=== PATIENT | male | born 1940 | race Caucasian/White ===

== ENCOUNTER 2016-11-07 10:19 | Emergency (ER) | payer MEDICARE, BC ==
--- NOTE | 2016-11-07 11:02 | EDM.PDOC ---
[id number]: CHEST PAIN WHEN ACTIVE Time Seen by Provider: 11/07/16 10:45 Source: Reports: Patient, Family History Limitations: Reports: No limitations - History of Present Illness INITIAL COMMENTS - FREE TEXT/NARRATIVE: 75-year-old male who presents to the emergency department with slowly but progressively worsening chest pain with activity over the past 3-4 weeks. After ambulating for over 5-6 minutes he starts getting chest pressure and pain which takes a few minutes to resolve with rest. It is not related to position, eating, is not associated with shortness of breath or diaphoresis. He recently had an increase in his lisinopril from 10-20 mg daily because of persistent hypertension. He is being treated with chemotherapy for liver cancer, continues to take an aspirin daily. Severity: mild Location, General: Reports: chest Quality: Reports: Ache, Pressure Associated Symptoms: Reports: denies other symptoms - Related Data Allergies/ADRs: Allergies Allergy/AdvReac Type Severity Reaction Status Date / Time atorvastatin Allergy Cannot Verified 11/09/15 21:58 Remember atorvastatin calcium Allergy Cannot Verified 11/09/15 21:58 [From Lipitor] Remember Penicillins Allergy Rash Verified 11/09/15 21:58 pravastatin Allergy Cannot Verified 11/09/15 21:58 Remember Home Meds: Home Meds Aspirin [Halfprin] 81 mg PO QAM 09/30/14 [History] Nitroglycerin 0.4 mg SL ASDIRECTED PRN 09/30/14 [History] Simvastatin [Zocor] 40 mg PO BEDTIME 09/30/14 [History] Ibuprofen 200 mg PO Q6H PRN 09/08/15 [History] Docusate Sodium [Colace] 200 mg PO BID 11/09/15 [History] Polyethylene Glycol 3350 [MiraLAX] 1 pkt PO QAM 11/09/15 [History] oxyCODONE 1 - 2 tab PO Q4H PRN 11/09/15 [History] Lisinopril [Lisinopril] 20 mg PO DAILY 11/07/16 [History] Past Medical History HEENT History: Reports: Impaired vision Cardiovascular History: Reports: CAD, High cholesterol, Hypertension Genitourinary History: Reports: Prostate disorder Oncologic (Cancer) History: Reports: Liver, Prostate - Past Surgical History Cardiovascular Surgical History: Reports: Carotid stents GI Surgical History: Reports: Cholecystectomy, Colonoscopy, Other (see below) Other GI Surgeries/Procedures: liver resection Male Surgical History: Reports: Prostatectomy Musculoskeletal Surgical History: Reports: Hip replacement Oncologic Surgical History: Reports: Other (see below) Other Oncologic Surgeries/Procedures: prostate rmoved, liver resection Social & Family History - Tobacco Use Smoking Status *Q: Former Smoker Years of Tobacco use: 10 Used Tobacco, but Quit: Yes Month Tobacco Last Used: 576 Second Hand Smoke Exposure: No - Caffeine Use Caffeine Use: Reports: Coffee - Alcohol Use Days Per Week of Alcohol Use: 0 - Recreational Drug Use Recreational Drug Use: No ED ROS GENERAL - Review of Systems Review Of Systems: See Below Constitutional: Denies: fever, chills, malaise Respiratory: Denies: Shortness of Breath Cardiovascular: Reports: Chest pain. Denies: Dyspnea on exertion, Palpitations , Syncope GI/Abdominal: Denies: Abdominal pain Skin: Reports: no symptoms Neurological: Reports: No Symptoms Psychiatric: Reports: No symptoms ED EXAM, GENERAL - Physical Exam Exam: See Below Exam Limited By: No limitations General Appearance: alert, no apparent distress Eye Exam: bilateral eye: EOMI Respiratory/Chest: no respiratory distress, lungs clear Cardiovascular: regular rate, rhythm. No: tachycardia, extra beats Extremities: normal inspection. No: pedal edema Neurological: alert, oriented, no motor/sensory deficits Psychiatric: normal affect, normal mood Skin Exam: Warm, Dry EKG INTERPRETATION Rhythm: NSR Course - Vital Signs Last Recorded V/S: Last Vital Signs Temp 97.5 F 11/07/16 10:36 Pulse 73 11/07/16 11:51 Resp 16 11/07/16 11:51 BP 183/97 H 11/07/16 11:51 Pulse Ox 99 11/07/16 11:51 - Orders/Labs/Meds Orders: Active Orders 24 hr Category Date Time Status EKG Documentation Completion [RC] ASDIRECTED Care 11/07/16 10:56 Active EKG 12 Lead [EK] Routine Ther 11/07/16 10:56 Ordered Labs: Laboratory Tests 11/07/16 11/07/16 Range/Units 11:05 11:05 WBC 5.0 (4.5-11.0) K/uL RBC 3.54 L (4.30-5.90) M/uL Hgb 10.1 L D (12.0-15.0) g/dL Hct 32.3 L (40.0-54.0) % MCV 91 (80-98) fL MCH 29 (27-31) pg MCHC 31 L (32-36) % Plt Count 95 L (150-400) K/uL Add Manual Diff Yes Neutrophils % (Manual) 48 (36-66) % Band Neutrophils % 2 L (5-11) % Lymphocytes % (Manual) 38 (24-44) % Monocytes % (Manual) 11 H (2-6) % Eosinophils % (Manual) 1 L (2-4) % Sodium 142 (140-148) mmol/L Potassium 4.2 (3.6-5.2) mmol/L Chloride 109 H (100-108) mmol/L Carbon Dioxide 27 (21-32) mmol/L Anion Gap 10.2 (5.0-14.0) mmol/L BUN 18 (7-18) mg/dL Creatinine 0.9 (0.8-1.3) mg/dL Est Cr Clr Drug Dosing 67.56 mL/min Estimated GFR (MDRD) > 60 (>60) Glucose 107 H (74-106) mg/dL Calcium 9.7 (8.5-10.1) mg/dL Total Bilirubin 0.9 (0.2-1.0) mg/dL AST 41 H D (15-37) U/L ALT 45 (12-78) U/L Alkaline Phosphatase 109 (46-116) U/L Troponin I < 0.017 (0.000-0.056) ng/mL Total Protein 6.2 L (6.4-8.2) g/dL Albumin 3.3 L (3.4-5.0) g/dL Globulin 2.9 (2.3-3.5) g/dL Albumin/Globulin Ratio 1.1 L (1.2-2.2) - Re-Assessments/Exams Free Text/Narrative Re-Assessment/Exam: 11/07/16 11:02 EKG was done which is normal. CBC, CMP and troponin were obtained. 11/07/16 12:06 All labs returned reassuring, troponin was 0. I discussed his case with on- call cardiology and he recommended a stress test. A Cardiolite stress was set up for later this week with results passed on to the hospitalist service who I also discussed his condition with. He was started on metoprolol 25 mg daily. Departure - Departure Time of Disposition: 12:28 Disposition: Home, Self-Care 01 Condition: good Clinical Impression: Stable angina Chest pain Qualifiers: Chest pain type: precordial pain Qualified Code(s): R07.2 - Precordial pain Instructions: Nonspecific Chest Pain, [id number] Referrals: Chloé Simon NP [Primary Care Provider] - Forms: ED Department Discharge Care Plan Goals: Continue your current medications and add metoprolol as prescribed. Stress test as scheduled with further care reevaluation depending on results. Return anytime sooner if worsening or concerns. - My Orders Last 24 Hours: My Active Orders 11/07/16 10:56 EKG Documentation Completion [RC] ASDIRECTED EKG 12 Lead [EK] Routine - Assessment/Plan Last 24 Hours: My Active Orders 11/07/16 10:56 EKG Documentation Completion [RC] ASDIRECTED EKG 12 Lead [EK] Routine
[2016-11-07 11:52] VITALS: BP 183/97
== END 2016-11-07 12:28 | disposition home or self-care (01) ==
LOC: JP.ED 10:19
DX: I20.8 Other forms of angina pectoris (principal); R07.2 Precordial pain; I10 Essential (primary) hypertension; I25.10 Atherosclerotic heart disease of native coronary artery without angina pectoris; E78.00 Pure hypercholesterolemia, unspecified; Z90.49 Acquired absence of other specified parts of digestive tract; Z96.649 Presence of unspecified artificial hip joint; Z90.79 Acquired absence of other genital organ(s); Z98.890 Other specified postprocedural states; Z79.82 Long term (current) use of aspirin; Z79.899 Other long term (current) drug therapy; Z88.0 Allergy status to penicillin; Z88.8 Allergy status to other drugs, medicaments and biological substances; Z87.891 Personal history of nicotine dependence
CPT/HCPCS: 36415; 80053; 84484; 85025; 93005; 93010; 99284; 99285-25

== ENCOUNTER 2016-11-28 22:55 | Emergency (ER) | payer MEDICARE, BC ==
[2016-11-29] MEDS ORDERED: Sodium Chloride 0.9% 1,000 ML IV SCH (00:30)
[2016-11-29 00:39] VITALS: BP 88/50
--- NOTE | 2016-11-29 01:29 | EDM.PDOC ---
ED HPI SEIZURE COMPLAINT - General Chief Complaint: Syncope Stated Complaint: MEDICAL Time Seen by Provider: 11/28/16 23:15 Source: Reports: Patient, EMS, Family History Limitations: Reports: No limitations - History of Present Illness INITIAL COMMENTS - FREE TEXT/NARRATIVE: 75-year-old male who received his third week of chemotherapy today, was given 40 mg of Lasix IV after chemotherapy because of "high blood pressure". Tonight at home he ate a meal then stood up and was going down the hallway feeling very dizzy and then had a syncopal episode. He bumped the top of his head against the wall. He was unresponsive for several seconds then confused for several minutes, very pale and diaphoretic. His called the ambulance. He remained hypotensive but improved in route and became more responsive and oriented. On arrival to the emergency room he was pale and felt some general malaise and nausea but his speech was clear and he was oriented x3. Denied any chest pain, shortness of breath, abdominal pain, or headache. No visual disturbance. Event Occurred (Where): home Event (Witnessed/Unwitnessed): witnessed Quality: Denies: generalized shaking, focal shaking Severity: moderate Context: Reports: new/change in medications (Received chemotherapy today and also 40 mg of IV Lasix). Denies: recent ETOH Pre Event Symptom(s): Reports: malaise, other (Patient was lightheaded and dizzy prior to fainting). Denies: aura, premonition Event Symptoms: Reports: malaise. Denies: incontinence, fever/chills Associated Injuries: Reports: head (Superficial abrasion on the top of his head) - Related Data Allergies/ADRs: Allergies Allergy/AdvReac Type Severity Reaction Status Date / Time atorvastatin Allergy Cannot Verified 11/28/16 23:37 Remember atorvastatin calcium Allergy Muscle Verified 11/28/16 23:37 [From Lipitor] Aches Penicillins Allergy Rash Verified 11/28/16 23:37 pravastatin Allergy Cannot Verified 11/28/16 23:37 Remember Home Meds: Home Meds Aspirin [Halfprin] 81 mg PO QAM 09/30/14 [History] Nitroglycerin 0.4 mg SL ASDIRECTED PRN 09/30/14 [History] Simvastatin [Zocor] 40 mg PO BEDTIME 09/30/14 [History] Ibuprofen 200 mg PO Q6H PRN 09/08/15 [History] Docusate Sodium [Colace] 200 mg PO BID 11/09/15 [History] Polyethylene Glycol 3350 [MiraLAX] 1 pkt PO QAM 11/09/15 [History] Lisinopril [Lisinopril] 20 mg PO DAILY 11/07/16 [History] Metoprolol Succinate [Toprol XL] 85 mg PO DAILY 11/09/16 [History] Multivitamin with Minerals [Multiple Vitamin] 1 tab PO DAILY 11/09/16 [History] Past Medical History HEENT History: Reports: Impaired vision Cardiovascular History: Reports: CAD, High cholesterol, Hypertension Genitourinary History: Reports: Prostate disorder Oncologic (Cancer) History: Reports: Liver, Prostate - Past Surgical History Cardiovascular Surgical History: Reports: Carotid stents Other Respiratory Surgeries/Procedures: 5th rib right side removed GI Surgical History: Reports: Cholecystectomy, Colonoscopy, Other (see below) Other GI Surgeries/Procedures: liver resection Male Surgical History: Reports: Prostatectomy Musculoskeletal Surgical History: Reports: Hip replacement Oncologic Surgical History: Reports: Other (see below) Other Oncologic Surgeries/Procedures: prostate removed, liver resection Social & Family History - Tobacco Use Smoking Status *Q: Former Smoker Years of Tobacco use: 10 Used Tobacco, but Quit: Yes Month Tobacco Last Used: 1967 Second Hand Smoke Exposure: No - Caffeine Use Caffeine Use: Reports: Coffee - Alcohol Use Days Per Week of Alcohol Use: 0 - Recreational Drug Use Recreational Drug Use: No ED ROS GENERAL - Review of Systems Review Of Systems: See Below Constitutional: Reports: malaise. Denies: fever, chills HEENT: Denies: Nosebleed, Throat pain Respiratory: Denies: Shortness of Breath, Cough Cardiovascular: Denies: Chest pain GI/Abdominal: Reports: Nausea. Denies: Abdominal pain, Vomiting : Reports: no symptoms Musculoskeletal: Reports: no symptoms Skin: Reports: pallor, diaphoresis Neurological: Reports: Weakness Psychiatric: Reports: No symptoms - Physical Exam Exam: See Below Exam Limited By: No limitations General Appearance: alert, no apparent distress Eye Exam: bilateral eye: EOMI, PERRL Head Exam: other (Superficial abrasion on the top of his head) Neck: non-tender Respiratory/Chest: no respiratory distress, lungs clear Cardiovascular: regular rate, rhythm GI/Abdominal: soft, non tender Neuro Exam (Abbreviated): alert, no motor/sensory deficits Extremities: pedal edema (1+ symmetric lower extremity edema) Psychiatric: normal affect, normal mood Skin Exam: Diaphoretic, Pallor Course - Vital Signs Last Recorded V/S: Last Vital Signs Temp 96.5 F 11/28/16 23:13 Pulse 79 11/29/16 00:31 Resp 16 11/29/16 00:31 BP 88/50 L 11/29/16 00:31 Pulse Ox 95 11/29/16 00:31 - Orders/Labs/Meds Orders: Active Orders 24 hr Category Date Time Status EKG Documentation Completion [RC] ASDIRECTED Care 11/28/16 23:19 Active EKG 12 Lead [EK] Routine Ther 11/28/16 23:19 Ordered Labs: Laboratory Tests 11/28/16 11/28/16 Range/Units 23:25 23:25 WBC 16.2 H (4.5-11.0) K/uL RBC 3.31 L (4.30-5.90) M/uL Hgb 9.7 L (12.0-15.0) g/dL Hct 30.9 L (40.0-54.0) % MCV 93 (80-98) fL MCH 29 (27-31) pg MCHC 31 L (32-36) % Plt Count 92 L (150-400) K/uL Add Manual Diff Yes Neutrophils % (Manual) 77 H (36-66) % Band Neutrophils % 7 (5-11) % Lymphocytes % (Manual) 10 L (24-44) % Monocytes % (Manual) 6 (2-6) % Anisocytosis Marked H Sodium 144 (140-148) mmol/L Potassium 4.6 (3.6-5.2) mmol/L Chloride 108 (100-108) mmol/L Carbon Dioxide 23 (21-32) mmol/L Anion Gap 13.5 (5.0-14.0) mmol/L BUN 34 H D (7-18) mg/dL Creatinine 1.6 H D (0.8-1.3) mg/dL Est Cr Clr Drug Dosing 38.00 mL/min Estimated GFR (MDRD) 42 L (>60) Glucose 228 H (74-106) mg/dL Calcium 9.2 (8.5-10.1) mg/dL Total Bilirubin 1.0 (0.2-1.0) mg/dL AST 42 H (15-37) U/L ALT 34 (12-78) U/L Alkaline Phosphatase 111 (46-116) U/L Troponin I 0.231 H* (0.000-0.056) ng/mL Total Protein 6.1 L (6.4-8.2) g/dL Albumin 2.9 L (3.4-5.0) g/dL Globulin 3.2 (2.3-3.5) g/dL Albumin/Globulin Ratio 0.9 L (1.2-2.2) Meds: Medications Discontinued Medications Generic Name Dose Route Start Last Admin Trade Name Freq PRN Reason Stop Dose Admin Sodium Chloride 1,000 mls @ 500 mls/hr 11/29/16 00:30 11/29/16 00:25 Normal Saline IV 500 mls/hr ASDIRECTED [facility] Administration - Re-Assessments/Exams Free Text/Narrative Re-Assessment/Exam: 11/29/16 01:27 Fluids were held initially as I felt a vasovagal episode would normalize. He also had the report of high blood pressure earlier today. However over the course of one hour his blood pressure remained at a systolic in the 90s, and his troponin returned at 0.231. He just had a stress test 2 weeks ago which showed no acute abnormality. He also now has renal insufficiency with a GFR of 43 and a creatinine of 1.6, those have always been normal in the past. I'm not sure what effect the Lasix had on these readings, or the chemotherapy. His symptoms and laboratory findings were discussed with the hospitalist in [place], and he was accepted to be evaluated at [facility]. Departure - Departure Time of Disposition: 00:54 Disposition: DC/Tfer to Acute Hospital 02 Condition: fair Clinical Impression: Elevated troponin Syncope Qualifiers: Syncope type: vasovagal syncope Qualified Code(s): R55 - Syncope and collapse Scalp abrasion Qualifiers: Encounter type: initial encounter Qualified Code(s): S00.01XA - Abrasion of scalp, initial encounter Liver cancer Qualifiers: Liver malignancy type: unspecified primary liver malignancy Qualified Code(s): C22.8 - Malignant neoplasm of liver, primary, unspecified as to type Referrals: Jamie Crabtree NP [Primary Care Provider] - Forms: ED Department Discharge Care Plan Goals: Patient will be transported to [facility] for monitoring and possible cardiology evaluation. - My Orders Last 24 Hours: My Active Orders 11/28/16 23:19 EKG Documentation Completion [RC] ASDIRECTED EKG 12 Lead [EK] Routine - Assessment/Plan Last 24 Hours: My Active Orders 11/28/16 23:19 EKG Documentation Completion [RC] ASDIRECTED EKG 12 Lead [EK] Routine
== END 2016-11-29 00:54 ==
LOC: JP.ED 22:55
DX: R55 Syncope and collapse (principal); R74.8 Abnormal levels of other serum enzymes; S00.01XA Abrasion of scalp, initial encounter; C22.8 Malignant neoplasm of liver, primary, unspecified as to type; I25.10 Atherosclerotic heart disease of native coronary artery without angina pectoris; I10 Essential (primary) hypertension; E78.00 Pure hypercholesterolemia, unspecified; Z85.46 Personal history of malignant neoplasm of prostate; Z79.82 Long term (current) use of aspirin; Z79.899 Other long term (current) drug therapy; Z88.0 Allergy status to penicillin; Z88.8 Allergy status to other drugs, medicaments and biological substances; Z90.49 Acquired absence of other specified parts of digestive tract; Z90.79 Acquired absence of other genital organ(s); Z96.649 Presence of unspecified artificial hip joint; Z98.890 Other specified postprocedural states; Z87.891 Personal history of nicotine dependence
CPT/HCPCS: 36415; 80053; 84484; 85025; 93005; 99285; J7040; 93010

== ENCOUNTER 2017-02-09 18:06 | Emergency (ER) | payer MEDICARE, BC ==
[2017-02-09] MEDS ORDERED: Acetaminophen/HYDROcodone 325-5 MG Tab PO ONE (20:11)
[2017-02-09 21:42] VITALS: BP 198/90
--- NOTE | 2017-02-09 22:11 | EDM.PDOC ---
ED HPI GENERAL MEDICAL PROBLEM - General Chief Complaint: General Stated Complaint: FELL AT HOME Time Seen by Provider: 02/09/17 20:05 Source of Information: Reports: Patient History Limitations: Reports: No Limitations - History of Present Illness INITIAL COMMENTS - FREE TEXT/NARRATIVE: History of present illness: [76-year-old male with liver cancer was outside walking without his walker and slipped and fell backwards and comes in complaining of left wrist pain and right mid back pain. He's wondering if a cracked rib. He does have a history of liver cancer and has had one rib removed in the process of doing a biopsy. They' re looking into some sort of experimental treatment for him out of [place] and he is hoping he'll get a phone call and that he will be eligible and a candidate for this experimental treatment.] Review of systems: As per history of present illness and below otherwise all systems reviewed and negative. Past medical history: As per history of present illness and as reviewed below otherwise noncontributory. Surgical history: As per history of present illness and as reviewed below otherwise noncontributory. Social history: No reported history of drug or alcohol abuse. Family history: As per history of present illness and as reviewed below otherwise noncontributory. Physical exam: HEENT: Atraumatic, normocephalic, pupils reactive, negative for conjunctival pallor or scleral icterus, mucous membranes moist, throat clear, neck supple, nontender, trachea midline. Lungs: Clear to auscultation, breath sounds equal bilaterally, chest he has tenderness to palpation of the right mid ribs of his back but no real point tenderness Heart: S1S2, regular, negative for clicks, rubs, or JVD. Abdomen: Soft, nondistended, nontender. Negative for masses or hepatosplenomegaly. Negative for costovertebral tenderness. Pelvis: Stable nontender. Genitourinary: Deferred. Rectal: Deferred. Extremities: He has some diffuse discomfort of the left wrist with slight swelling but no deformity is noted Neuro: Awake, alert, oriented. Cranial nerves II through XII unremarkable. Cerebellum unremarkable. Motor and sensory unremarkable throughout. Exam nonfocal. Diagnostics: [X-rays of his wrist and right ribs and chest do not reveal any acute fractures. He does have chronic changes and he is being followed by oncology and other doctors for his liver cancer. The nodule noted on the chest x-ray is not new according to him. That is being followed.] Therapeutics: [] Impression: [Left wrist contusion Right back contusion] Plan: [I'm providing him with some [place] [address] from [facility] for his pain and he can recuperate at home with Tylenol and Advil as well.] Definitive disposition and diagnosis as appropriate pending reevaluation and review of above. Treatments DUTY ENGINEER: Reports: Acetaminophen Back Pain Score (Numeric/FACES): 9 Left Wrist Pain Score (Numeric/FACES): 8 - Related Data Allergies Allergy/AdvReac Type Severity Reaction Status Date / Time atorvastatin calcium Allergy Muscle Verified 02/09/17 19:59 [From Lipitor] Aches Penicillins Allergy Rash Verified 02/09/17 19:59 pravastatin Allergy Cannot Verified 02/09/17 19:59 Remember Home Meds: Home Meds Aspirin [Halfprin] 81 mg PO QAM 09/30/14 [History] Nitroglycerin 0.4 mg SL ASDIRECTED PRN 09/30/14 [History] Simvastatin [Zocor] 40 mg PO BEDTIME 09/30/14 [History] Ibuprofen 200 mg PO Q6H PRN 09/08/15 [History] Docusate Sodium [Colace] 200 mg PO BID 11/09/15 [History] Polyethylene Glycol 3350 [MiraLAX] 1 pkt PO QAM 11/09/15 [History] Lisinopril [Lisinopril] 20 mg PO DAILY 11/07/16 [History] Metoprolol Succinate [Toprol XL] 85 mg PO DAILY 11/09/16 [History] Multivitamin with Minerals [Multiple Vitamin] 1 tab PO DAILY 11/09/16 [History] Past Medical History HEENT History: Reports: Impaired Vision Cardiovascular History: Reports: CAD, High Cholesterol, Hypertension Genitourinary History: Reports: Prostate Disorder Oncologic (Cancer) History: Reports: Liver - Infectious Disease History Infectious Disease History: Reports: Chicken Pox, Measles - Past Surgical History Cardiovascular Surgical History: Reports: Carotid Stents, Other (See Below) Other Cardiovascular Surgeries/Procedures: 7 stents Other Respiratory Surgeries/Procedures: 5th rib right side removed GI Surgical History: Reports: Cholecystectomy, Colonoscopy, Other (See Below) Other GI Surgeries/Procedures: Liver cancer Musculoskeletal Surgical History: Reports: Hip Replacement Oncologic Surgical History: Reports: Other (See Below) Other Oncologic Surgeries/Procedures: Chemo for liver cancer Social & Family History - Tobacco Use Smoking Status *Q: Never Smoker Years of Tobacco use: 10 Used Tobacco, but Quit: Yes Month Tobacco Last Used: 1967 Second Hand Smoke Exposure: No - Caffeine Use Caffeine Use: Reports: None - Alcohol Use Days Per Week of Alcohol Use: 0 - Recreational Drug Use Recreational Drug Use: No ED ROS GENERAL - Review of Systems Review Of Systems: ROS reveals no pertinent complaints other than HPI. ED EXAM, GENERAL - Physical Exam Exam: See Below Course - Vital Signs Last Recorded V/S: Last Vital Signs Temp 36.6 C 02/09/17 19:54 Pulse 69 02/09/17 21:40 Resp 14 02/09/17 21:40 BP 198/90 H 02/09/17 21:40 Pulse Ox 94 L 02/09/17 21:40 - Orders/Labs/Meds Orders: Active Orders 24 hr Category Date Time Status Ribs 2V w Chest Rt [CR] Stat Exams 02/09/17 20:09 Taken Wrist Comp Min 3V Lt [CR] Stat Exams 02/09/17 20:09 Taken Meds: Medications Discontinued Medications Generic Name Dose Route Start Last Admin Trade Name Derek PRN Reason Stop Dose Admin Hydrocodone Bitart/Acetaminophen 1 tab 02/09/17 20:11 02/09/17 20:40 [place] 325-5 Mg PO 02/09/17 20:12 1 tab ONETIME ONE Administration Departure - Departure Time of Disposition: 22:11 Disposition: Home, Self-Care 01 Condition: Good Clinical Impression: Contusion of left wrist Qualifiers: Encounter type: initial encounter Qualified Code(s): S60.212A - Contusion of left wrist, initial encounter Contusion of right back wall of thorax Qualifiers: Encounter type: initial encounter Qualified Code(s): S20.221A - Contusion of right back wall of thorax, initial encounter - Discharge Information Forms: ED Department Discharge Additional Instructions: I hope you get a phone call and are eligible for this experimental drug for the treatment of your liver cancer. It was a pleasure meeting you. - My Orders Last 24 Hours: My Active Orders 02/09/17 20:09 Ribs 2V w Chest Rt [CR] Stat Wrist Comp Min 3V Lt [CR] Stat - Assessment/Plan Last 24 Hours: My Active Orders 02/09/17 20:09 Ribs 2V w Chest Rt [CR] Stat Wrist Comp Min 3V Lt [CR] Stat
--- NOTE | 2017-02-10 09:19 | CR ---
Wrist Comp Min 3V Lt INDICATION: fall, injury FINDINGS: No evidence for acute fracture. Tiny well-corticated calcification dorsal to the distal ul na on the lateral view appears chronic. Degenerative narrowing radiocarpal joint, STT joint, first C MC joint. Arterial calcifications.
--- NOTE | 2017-02-10 09:41 | CR ---
Ribs 2V w Chest Rt INDICATION: fall, rib pain FINDINGS: Comparison 09/30/2014. Port-A-Cath with tip in the upper SVC. New nodular densities in both lungs measuring up to 19 mm in the right lower lung and 11 mm in the left lower lung. New small left pleural effusion. Changes of p resumed right thoracotomy with resection of a portion of the right seventh rib rib. No definitive ac shama fracture. Exam otherwise unremarkable. Consider contrast-enhanced chest CT for further evaluatio n.
== END 2017-02-09 22:30 | disposition home or self-care (01) ==
LOC: JP.ED 18:06
DX: S60.212A Contusion of left wrist, initial encounter (principal); S20.221A Contusion of right back wall of thorax, initial encounter; I25.10 Atherosclerotic heart disease of native coronary artery without angina pectoris; E78.00 Pure hypercholesterolemia, unspecified; I10 Essential (primary) hypertension; Z95.5 Presence of coronary angioplasty implant and graft; Z96.649 Presence of unspecified artificial hip joint; Z79.82 Long term (current) use of aspirin; Z79.899 Other long term (current) drug therapy; Z88.0 Allergy status to penicillin; Z88.8 Allergy status to other drugs, medicaments and biological substances; Z90.49 Acquired absence of other specified parts of digestive tract; Z85.05 Personal history of malignant neoplasm of liver; W01.0XXA Fall on same level from slipping, tripping and stumbling without subsequent striking against object, initial encounter
CPT/HCPCS: 71101; 73110; 99284; A9270; 99283